=== PATIENT | female | born 1955 | race Caucasian/White ===

== ENCOUNTER 2021-01-10 05:54 | Day surgery (SDC) | payer MEDICAID ==
[~2021-01-10 05:54] MED LIST: Lidocaine 1%/Sod Bicarbonate in NS 8.4% 1 ML Syringe IDERM PRN; Sodium Chloride 0.9% 10 ML Syringe FLUSH PRN
[2021-01-10] MEDS ORDERED: oxyCODONE ER 10 MG TAB.ER PO SCH (06:00)
[2021-01-10] MEDS ORDERED: Acetaminophen 325 MG Tab PO SCH (06:00)
[2021-01-10] MEDS ORDERED: Pregabalin 25 MG Cap PO SCH (06:00)
[2021-01-10] MEDS: Lactated Ringers 1,000 ML IV SCH ×3 (06:10→12:01)
--- NOTE | 2021-01-10 06:36 | PCM.PREANE ---
Preanesthetic Assessment - Procedure Proposed Procedure: Right Total knee arthroplasty - Review of Systems General: No Symptoms Pulmonary: No Symptoms Cardiovascular: No Symptoms Gastrointestinal: No Symptoms Neurological: No Symptoms Other: Reports: Anxiety - Physical Assessment NPO Status Date: 01/09/21 NPO Status Time: 21:00 Vital Signs: 134/63 62 96% 97.5 F Height: 1.63 m Weight: 127 kg ASA Class: 3 Mental Status: Alert & Oriented x3 Airway Class: Mallampati = 3 Dentition: Reports: [place](s), Broken Tooth/Teeth, Caries Thyro-Mental Finger Breadths: 3 Mouth Opening Finger Breadths: 3 ROM/Head Extension: Full Lungs: Clear to Auscultation, Normal Respiratory Effort Cardiovascular: Regular Rate, Regular Rhythm - Lab Values: Laboratory Last Values MRSA (PCR) Negative 12/29/20 14:38 - Allergies Allergies/Adverse Reactions: Allergies Allergy/AdvReac Type Severity Reaction Status Date / Time adhesive tape Allergy Hives Verified 01/07/21 12:44 latex Allergy Rash Verified 01/07/21 12:44 morphine Allergy Nausea and Verified 01/07/21 12:44 Vomiting - Acknowledgements Anesthesia Type Planned: Spinal, Regional Block Pt an Appropriate Candidate for the Planned Anesthesia: Yes Alternatives and Risks of Anesthesia Discussed w Pt/Guardian: Yes Pt/Guardian Understands and Agrees with Anesthesia Plan: Yes PreAnesthesia Questionnaire HEENT History: Reports: Impaired Vision, Other (See Below) Other HEENT History: wears glasses Cardiovascular History: Reports: High Cholesterol, Other (See Below) Other Cardiovascular History: bradycardia, tachy-jimena syndrome Respiratory History: Reports: None Gastrointestinal History: Reports: None Genitourinary History: Reports: None COLORING CHECKER History: Reports: None Musculoskeletal History: Reports: RA, Other (See Below) Other Musculoskeletal History: femur fracture Neurological History: Reports: Other (See Below) Other Neuro History: facial droop Psychiatric History: Reports: Other (See Below) Other Psychiatric History: dysthymic disorder Endocrine/Metabolic History: Reports: Hypothyroidism, Obesity/BMI 30+, Other (See Below) Other Endocrine/Metabolic History: goiter Hematologic History: Reports: None Immunologic History: Reports: None Oncologic (Cancer) History: Reports: None Dermatologic History: Reports: Cellulitis, Other (See Below) Other Dermatologic History: scalp cyst excision - Infectious Disease History Infectious Disease History: Reports: None - Past Surgical History Head Surgeries/Procedures: Reports: None HEENT Surgical History: Reports: Tonsillectomy Cardiovascular Surgical History: Reports: Cardiac Ablation Respiratory Surgical History: Reports: None GI Surgical History: Reports: Cholecystectomy Female Surgical History: Reports: Section, D&C, Hysterectomy, Tubal Ligation Male Surgical History: Reports: None Endocrine Surgical History: Reports: Thyroidectomy Neurological Surgical History: Reports: None Musculoskeletal Surgical History: Reports: Knee Replacement Oncologic Surgical History: Reports: Bone Marrow Transplant Dermatological Surgical History: Reports: None - SUBSTANCE USE Tobacco Use Status *Q: Never Tobacco User Recreational Drug Use History: No - HOME MEDS Home Medications: Home Meds Acetaminophen/HYDROcodone [[place] 325-5 MG] 1 tab PO Q4H PRN 01/07/21 [History] Calcium Carb/Vitamin D3/Vit K1 [Calcium + D Soft Chewable Tab] 1 tab PO DAILY 01/07/21 [History] Cholecalciferol (Vitamin D3) [Vitamin D3] 5,000 unit PO DAILY 01/07/21 [History] Citalopram Hydrobromide [Celexa] 40 mg PO DAILY 01/07/21 [History] Diclofenac Sodium [Voltaren 1% Gel] 1 dose TOP QID 01/07/21 [History] Fish Oil/[place]-3 Fatty Acids [Fish Oil 1,000 MG] 1 gm PO DAILY 01/07/21 [History] Levothyroxine 125 mcg PO DAILY 01/07/21 [History] Methotrexate 20 mg PO FR 01/07/21 [History] Multivitamin 1 tab PO DAILY 01/07/21 [History] Zinc 50 mg PO DAILY 01/07/21 [History] tiZANidine HCl [Zanaflex] 4 mg PO BEDTIME 01/07/21 [History] - CURRENT (IN HOUSE) MEDS Current Meds: Current Medications Acetaminophen (Acetaminophen 325 Mg Tab) 975 mg PO ONETIME RUSH Stop: 01/10/21 18:00 Last Admin: 01/10/21 06:17 Dose: 975 mg Documented by: Epinephrine HCl 0.3 mg/Cefuroxime Sodium 750 mg/Ketorolac Tromethamine 30 mg/Sodium Chloride 7.9 ml 0 mg .XX ASDIRECTED PRN PRN Reason: Pain Stop: 01/10/21 18:00 Lactated Ringer's (Ringers, Lactated) 1,000 mls @ 125 mls/hr IV ASDIRECTED RUSH Stop: 01/10/21 23:00 Lidocaine/Sodium Bicarbonate (Lidocaine 1%/Sod Bicarbonate In Ns 8.4% 1 Ml Syri nge) 0.25 ml IDERM ONETIME PRN PRN Reason: Prior to IV Start Stop: 01/10/21 18:00 Oxycodone HCl (Oxycodone Er 10 Mg Tab.Er) 10 mg PO ONETIME RUSH Stop: 01/10/21 18:00 Last Admin: 01/10/21 06:17 Dose: 10 mg Documented by: Pregabalin (Pregabalin 25 Mg Cap) 50 mg PO ONETIME RUSH Stop: 01/10/21 18:00 Last Admin: 01/10/21 06:17 Dose: 50 mg Documented by: Sodium Chloride (Sodium Chloride 0.9% 10 Ml Syringe) 10 ml FLUSH ASDIRECTED PRN PRN Reason: Keep Vein Open Stop: 01/10/21 18:00 Discontinued Medications Tranexamic Acid (Tranexamic Acid 1,000 Mg/10 Ml Amp) Confirm Administered Dose 1,000 mg .ROUTE .STK-MED ONE Stop: 01/10/21 06:15 Vancomycin HCl (Vancomycin 1 Gm Sdv) Confirm Administered Dose 1 gm .ROUTE .STK- MED ONE Stop: 01/10/21 06:15
[2021-01-10] MEDS ORDERED: fentaNYL 100 MCG/2 ML SDV ONE (06:48)
[2021-01-10] MEDS ORDERED: Propofol 200 MG/20 ML SDV ONE (06:49)
[2021-01-10] MEDS ORDERED: Midazolam 1 MG/ML 2 ML SDV ONE (06:49)
[2021-01-10] MEDS ORDERED: Lidocaine 1% 4 ML ONE (07:25)
[2021-01-10] MEDS ORDERED: ceFAZolin 1 GM Vial ONE (07:27)
[2021-01-10] MEDS ORDERED: Lactated Ringers 1,000 ML ONE (08:03)
[2021-01-10] MEDS: EPINEPHrine 0.3 MG, Cefuroxime 750 MG, Ketorolac 30 MG, Sodium Chloride 0.9% 7.9 ML PRN ×8 (08:08→08:38)
[2021-01-10] MEDS: Vancomycin 1 GM SDV ONE ×2 (08:08→08:47)
[2021-01-10] MEDS ORDERED: Dexamethasone 4 MG/ML 5 ML MDV ONE (08:19)
[2021-01-10] MEDS ORDERED: Dexmedetomidine 200 MCG/2 ML SDV ONE (08:19)
[2021-01-10] MEDS ORDERED: Ropivacaine 0.5% 5 MG/ML 30 ML SDV ONE (09:13)
--- NOTE | 2021-01-10 09:46 | PCM.POSTAN ---
POST ANESTHESIA ASSESSMENT - MENTAL STATUS Mental Status: Alert, Oriented - VITAL SIGNS Vital Signs: Last Vital Signs Temp 97.0 F 01/10/21 09:11 Pulse 62 01/10/21 05:50 Resp 10 L 01/10/21 09:11 BP 84/75 L 01/10/21 09:11 Pulse Ox 98 01/10/21 09:11 - RESPIRATORY Respiratory Status: Respiratory Rate WNL, Airway Patent, O2 Saturation Stable, Supplemental Oxygen - CARDIOVASCULAR CV Status: Pulse Rate WNL, Low Blood Pressure - GASTROINTESTINAL GI Status: No Symptoms - PAIN Pain Score: 0 (post SAB) - POST OP HYDRATION Hydration Status: Adequate & Stable
--- NOTE | 2021-01-10 09:52 | PCM.PRNOTE ---
- Free Text/Narrative Note: Postoperative regional pain control requested by surgeon. Pre-op Dx: Rt knee osteoarthritis. Post-op Rx: Total Rt knee arthroplasty. Procedure: Rt Adductor canal block with U/S guidance Requesting physician: Dr. Edison Borjas Risks and benefits discussed with the patient preoperatively including infection, bleeding, incomplete or failed block, possible nerve damage, local anesthetic toxicity. Permit signed. Patient after spinal anesthesia post surgery in PACU, stable , alert and awake. Time out performed. Right mid-thigh was prepped with Chloraprep x 1 and allowed to dry. Under aseptic technique, the right femoral artery and sartorius muscle were identified under ultrasound prior to needle insertion. 4" Stimuplex needle #20 G was inserted under US guidance. Under direct visualization of needle tip the injection of 0.5% Ropivacaine with 1:200k epinephrine, with added 8 mg of Dexamethasone and 40 mcg of Dexmedetomidine, total of 30 mls in divided doses, maintaining negative aspiration was completed. .Blood return noticed twice and the needle repositioned, flushed with NS until aspiration was negative. An episode of transient heart rate elevation was noted, which resolved within minutes. No additional interventions were necessary. Patient is awake and stable. Time: 09:21 - 09:30 Please see attached U/S picture.
[2021-01-10] MEDS ORDERED: ePHEDrine 50 MG/ML SDV ONE (10:08)
--- NOTE | 2021-01-10 11:16 | CR ---
Right knee: AP and crosstable lateral views of the right knee were obtained. Comparison: Prior right knee CT study of 12/29/20. Knee prosthesis is seen. Components are aligned. Underlying bony structures are intact. Soft tissue air is noted from the surgical procedure. Impression: 1. Satisfactory postop radiographic appearance of recently placed right knee prosthesis. Diagnostic code #2
[2021-01-10] MEDS ORDERED: oxyCODONE 5 MG Tab PO PRN (11:59)
--- NOTE | 2021-01-10 12:30 | PCM48HPAN ---
Post Anesthesia Note - EVALUATION WITHIN 48HRS OF ANESTHETIC Vital Signs in Normal Range: Yes Patient Participated in Evaluation: Yes Respiratory Function Stable: Yes Airway Patent: Yes Cardiovascular Function Stable: Yes Hydration Status Stable: Yes Pain Control Satisfactory: Yes Nausea and Vomiting Control Satisfactory: Yes Mental Status Recovered: Yes Vital Signs: Last Vital Signs Temp 97.0 F 01/10/21 09:11 Pulse 84 01/10/21 11:00 Resp 15 01/10/21 11:00 BP 148/78 H 01/10/21 11:00 Pulse Ox 96 01/10/21 11:00 - COMMENTS/OBSERVATIONS Free Text/Narrative:: Patient is stable, no chest discomfort noted anymore, ambulated with PT, had the lunch, pain under control. Preparing for discharge home.
--- NOTE | 2021-01-10 13:46 | PCM.OPNOTE ---
- General Post-Op/Procedure Note Date of Surgery/Procedure: 01/10/21 Operative Procedure(s): right total knee arthroplasty with [employer] Pre Op Diagnosis: right knee ostearthrosis Post-Op Diagnosis: Same Anesthesia Technique: Local, MAC, Spinal Primary Surgeon: Edison Coello Anesthesia Provider: Akhil Tracey Foreman/[employer]: Jaci Castellanos Foreman/[employer] Erection: Jaqui Palomares EBL in mLs: 300 Complications: None Condition: Good Free Text/Narrative:: Intake & Output 01/09/21 01/10/21 01/10/21 22:59 06:59 14:59 Intake Total 1200 Balance 1200 4 femur 3 tibia 9mm 29x9
--- NOTE | 2021-01-10 14:37 | PCM.EKG ---
#1 Interpretation EKG Date: 01/10/21 Time: 09:33 Rhythm: NSR Rate (Beats/Min): 80 Stanton: LAD-Left Stanton Deviation (Mild mild left axis deviation of -8 degrees) P-Wave: Enlarged QRS: Other (Consider left atrial hypertrophy new Q waves V1 to V3 old anteroseptal myocardial infarction. Q waves present in leads III and aVF consider old inferior wall myocardial infarction.) ST-T: Other (Mildly prolonged T wave flattening aVL 3 and aVF nonspecific) QT: Prolonged EKG Interpretation Comments: Abnormal ECG
--- NOTE | 2021-01-20 09:23 | OR ---
DATE OF OPERATION: 01/10/2021 SURGEON: Edison Coello MD OPERATION PERFORMED: Right total knee arthroplasty, [employer]. PREOPERATIVE DIAGNOSIS: Right knee osteoarthrosis. POSTOPERATIVE DIAGNOSIS: Right knee osteoarthrosis. ANESTHESIA: Local MAC with spinal. ANESTHESIA PROVIDER: Daniela Baker. ASSISTANTS: Jaci Castellanos PA-C and Jaqui Palomares LPN. ESTIMATED BLOOD LOSS: 300 mL. COMPLICATIONS: None. CONDITION: Stable. IMPLANTS: 1. Conesus size 4 press-fit CR femur. 2. Masha size 3 press-fit tibial baseplate. 3. Masha size 9 mm CS polyethylene insert. 4. Masha size 29 x 9 mm press-fit asymmetric patella. DESCRIPTION OF PROCEDURE: The patient was identified in the preoperative holding area. Proper site was marked and identified by the surgeon. The patient was taken back to the operative theater where after adequate anesthesia, the patient's right lower extremity had a nonsterile tourniquet applied and then sterilely prepped and draped in the usual sterile fashion. OR time-out was performed. The patient received 2 g IV Ancef. At this time, right lower extremity had the leg ashford boot applied. It was then exsanguinated. Tourniquet was insufflated to 250 mmHg. Standard anterior incision was made. Medial parapatellar arthrotomy was created. Deep fibers of the MCL were raised, and the anterior fat pad was resected. At this time, attention was turned to the patella. Patella measured a 21, resected to a 13 for 29 x 9 mm patella. Drill holes were then drilled and found to be adequate. Two guide pins were then placed intra-incisionally in the femur for the [employer] robotic array. Checkpoints were placed on the femur and the tibia, and then 2 more pins were placed 3 fingerbreadths below the tibial tubercle for the tibial [employer] robotic array. Hip center rotation was obtained. Medial and lateral malleoli were marked. At this time, 40 points were obtained from both the femur and the tibia for the [employer] robotic plan. The patient's knee was brought into full extension. Varus and valgus stresses were applied and then 90 degrees of flexion and varus and valgus stresses were applied with the use of a Leon. At this time, the [employer] robotic plan was used for this patient to fit her anatomy doing various external rotation to match her anatomy. At this time, the [employer] robotic arm was brought in with a straight saw blade. The tibial cut was made as well as the anterior femoral cut, the anterior chamber, and the posterior femoral cut. Saw blade was then switched and the posterior chamfer as well as distal femoral cut was completed at this time. All bony pieces were removed. Medial and lateral meniscus were resected. Posterior osteophytes were removed. Trial implants were then placed with a size 3 tibia, size 4 femur, 9 mm trial poly was placed. The patient had full extension and full flexion. No liftoff was noted. No varus or valgus instability. At this time, the drill holes were drilled in the femur. The tibia was stamped and drilled in the proper rotation. Size 3 tibia was then impacted into place, size 4 femur was impacted into place, 9 mm CS polyethylene was impacted into place, and the 29 x 9 mm press-fit patella was press-fit into place. The tourniquet was deflated. Bleeders were cauterized. 1 L pulse lavage irrigation with Ancef was irrigated in the knee along with 400 mL IrriSept irrigation. Periarticular injection was completed. Topical tranexamic acid and vancomycin powder were applied. A #2 barbed suture was used for closure of the medial parapatellar arthrotomy, 2-0 Vicryl and Stratafix were used subcutaneously, and Prineo was used for skin closure. The patient tolerated the procedure well and was sent to PACU in stable condition. ZULY /[id number]
== END 2021-01-10 14:08 | disposition home or self-care (01) ==
LOC: JD.SDS 05:54
PROVIDERS: ATTEND Orthopaedic Surgery
DX: M17.11 Unilateral primary osteoarthritis, right knee (principal); R29.810 Facial weakness; R73.03 Prediabetes; E66.01 Morbid (severe) obesity due to excess calories; E03.9 Hypothyroidism, unspecified; I10 Essential (primary) hypertension; M06.9 Rheumatoid arthritis, unspecified; Z98.890 Other specified postprocedural states; Z79.899 Other long term (current) drug therapy; Z88.5 Allergy status to narcotic agent; Z91.040 Latex allergy status; Z91.048 Other nonmedicinal substance allergy status; Z79.890 Hormone replacement therapy; Z68.42 Body mass index [BMI] 45.0-49.9, adult
CPT/HCPCS: 27447; 73560; 87641; 93005; 97110; 97116; 97161; 97165; 97535; A9270; C1713; C1776; J0171; J0690; J0697; J1100; J1885; J2250; J2370; J2704; J2795; J3010; J3370; J7120; 01402; 64450; 76942

== ENCOUNTER 2021-01-12 21:25 | Emergency (ER) | payer MEDICAID ==
[2021-01-12] MEDS ORDERED: HYDROmorphone 0.5 MG/0.5 ML Syringe IVPUSH ONE ×2 (22:19→23:28)
[2021-01-12] MEDS ORDERED: Ondansetron 4 MG/2 ML SDV IVPUSH ONE (22:19)
--- NOTE | 2021-01-12 22:20 | EDM.PDOC ---
ED HPI GENERAL MEDICAL PROBLEM - General Chief Complaint: Fever Stated Complaint: FEVER Time Seen by Provider: 01/12/21 21:58 Source of Information: Reports: Patient History Limitations: Reports: No Limitations - History of Present Illness INITIAL COMMENTS - FREE TEXT/NARRATIVE: Ms. Styles is a very pleasant 65-year-old woman who who underwent a right total knee arthroplasty with robotic assistance 2 days ago, 01/10/2021. She was discharged home the same day. She now presents the ED with a fever that she states developed yesterday afternoon, 01/11/2021. She states that her fever was higher today, with a T-max of 103.7 degrees at 21:00 tonight. No recent cough, dyspnea, nausea, vomiting, or diarrhea, however, the patient states that she has been leaking urine ever since her surgery. She denies dysuria. She reports considerable pain in her right knee, and states that it is hot to the touch. She has been taking prescribed oxycodone and OTC acetami nophen. Here in the ED tonight, the patient's initial BP is found to be mildly elevated at 146/77, otherwise, she is hemodynamically stable, afebrile, saturating 94 to 96% on room air. She appears to be somewhat anxious and uncomfortable, but in no acute distress. Prior to Sunday, the patient denies having a recent fever, chills, sore throat, ear pain, nasal or sinus congestion, cough, dyspnea, chest pain, palpitations, nausea, vomiting, constipation, diarrhea, abdominal pain, urinary symptoms, recent weight gain or weight loss, recent bloody bowel movements or black bowel movements, headaches, or rashes. The patient's PCP is Caroline Bragg NP. Her Orthopedic Surgeon is Dr. Edison Coello. Right Knee Pain Score (Numeric/FACES): 10 - Related Data Allergies Allergy/AdvReac Type Severity Reaction Status Date / Time adhesive tape Allergy Severe Hives Verified 01/12/21 21:45 latex Allergy Severe Rash Verified 01/12/21 21:45 morphine AdvReac Severe Nausea and Verified 01/12/21 21:45 Vomiting Home Meds: Home Meds Calcium Carb/Vitamin D3/Vit K1 [Calcium + D Soft Chewable Tab] 1 tab PO DAILY 01/07/21 [History] Cholecalciferol (Vitamin D3) [Vitamin D3] 5,000 unit PO DAILY 01/07/21 [History] Citalopram Hydrobromide [Celexa] 40 mg PO DAILY 01/07/21 [History] Fish Oil/[place]-3 Fatty Acids [Fish Oil 1,000 MG] 1 gm PO DAILY 01/07/21 [History] Levothyroxine 125 mcg PO DAILY 01/07/21 [History] Multivitamin 1 tab PO DAILY 01/07/21 [History] Zinc 50 mg PO DAILY 01/07/21 [History] tiZANidine HCl [Zanaflex] 4 mg PO BEDTIME 01/07/21 [History] Aspirin [Aspirin EC] 325 mg PO BID #84 tab 01/10/21 [Rx] Rivaroxaban [Xarelto] 10 mg PO DAILY #5 tab 01/10/21 [Rx] oxyCODONE 5 - 10 mg PO Q4H PRN #40 tab 01/10/21 [Rx] valACYclovir HCl [valACYclovir] 1,000 mg PO ASDIRECTED 01/10/21 [History] Acetaminophen [Tylenol Extra Strength] 1,000 mg PO Q4HR PRN 01/12/21 [History] Rosuvastatin [Crestor] 10 mg PO BEDTIME 01/12/21 [History] Past Medical History HEENT History: Reports: Impaired Vision (wears glasses) Cardiovascular History: Reports: Arrhythmia (tachy-jimena syndrome, s/p cardiac ablation), High Cholesterol, Hypertension, Other (See Below) Musculoskeletal History: Reports: Fracture (bilateral femurs), Osteoarthritis, RA Endocrine/Metabolic History: Reports: Hypothyroidism (following thyroidectomy), Obesity/BMI 30+, Other (See Below) (Prediabetes) - Past Surgical History HEENT Surgical History: Reports: Tonsillectomy Cardiovascular Surgical History: Reports: Cardiac Ablation GI Surgical History: Reports: Cholecystectomy (1985) Female Surgical History: Reports: Section (x 2), D&C, Hysterectomy (complete), Tubal Ligation Endocrine Surgical History: Reports: Thyroidectomy (due to goiter) Musculoskeletal Surgical History: Reports: Knee Replacement (bilateral) Social & Family History - Tobacco Use Tobacco Use Status *Q: Never Tobacco User - Caffeine Use Caffeine Use: Reports: Coffee - Alcohol Use Alcohol Use History: No - Recreational Drug Use Recreational Drug Use: No - Living Situation & Occupation Living situation: Reports: , Alone Occupation: Unemployed ED ROS GENERAL - Review of Systems Review Of Systems: Comprehensive ROS is negative, except as noted in HPI. ED EXAM, GENERAL - Physical Exam Exam: See Below Exam Limited By: No Limitations General Appearance: Alert, WD/WN, Anxious Eye Exam: Bilateral Eye: EOMI, Normal Inspection Ears: Normal External Exam, Hearing Grossly Normal Nose: Normal Inspection Throat/Mouth: Normal Inspection, Normal Lips, Normal Voice, No Airway Compromise Head: Atraumatic, Normocephalic Neck: Normal Inspection, Full Range of Motion Respiratory/Chest: No Respiratory Distress, Lungs Clear, Normal Breath Sounds, No Accessory Muscle Use Cardiovascular: Normal Peripheral Pulses, Regular Rate, Rhythm, No Gallop, No JVD, No Murmur, No Rub Peripheral Pulses: 3+: Radial (L), Radial (R) GI/Abdominal: Normal Bowel Sounds, Soft, Non-Tender, No Organomegaly, No Distention, No Abnormal Bruit, No Mass Extremities: Normal Capillary Refill, Other (Right knee and surrounding area swollen and erythematous, with calor. The patient reports tenderness to palpation. Surgical dressings are still on, and appear to be clean and dry.) Neurological: Alert, Oriented, Normal Cognition, No Motor/Sensory Deficits Psychiatric: Anxious Skin Exam: Warm, Dry, Intact, Normal Color, No Rash Course - Vital Signs Last Recorded V/S: Last Vital Signs Temp 36.3 C 01/12/21 21:39 Pulse 92 01/12/21 21:39 Resp 18 01/12/21 21:39 BP 146/77 H 01/12/21 21:39 Pulse Ox 94 L 01/12/21 21:39 - Orders/Labs/Meds Orders: Active Orders 24 hr Category Date Time Status CULTURE BLOOD [BC] Stat Lab 01/12/21 22:30 Received CULTURE BLOOD [BC] Stat Lab 01/12/21 22:40 Received Magnesium Sulfate/Water [Magnesium Sulfate in Water 4 Med 01/12/21 23:29 Active GM/50 ML] 4 gm Premix Bag 1 bag IV ONETIME Sodium Chloride 0.9% [Normal Saline] 1,000 ml Med 01/12/21 22:30 Active IV ASDIRECTED Blood Culture x2 Reflex Set [OM.PC] Stat Oth 01/12/21 22:17 Ordered Medication Orders Sodium Chloride (Normal Saline) 1,000 mls @ 100 mls/hr IV ASDIRECTED RUSH Last Admin: 01/12/21 22:37 Dose: 100 mls/hr Documented by: [email or web address] Magnesium Sulfate 4 gm/ Premix 50 mls @ 12.5 mls/hr IV ONETIME ONE Stop: 01/13/21 03:28 Last Admin: 01/12/21 23:36 Dose: 12.5 mls/hr Documented by: [email or web address] Labs: Laboratory Tests 01/12/21 01/12/21 01/12/21 Range/Units 22:30 22:30 22:55 WBC 12.22 H (3.98-10.04) K/mm3 RBC 4.15 (3.98-5.22) M/mm3 Hgb 13.0 (11.2-15.7) gm/dl Hct 39.6 (34.1-44.9) % MCV 95.4 H (79.4-94.8) fl MCH 31.3 (25.6-32.2) pg MCHC 32.8 (32.2-35.5) g/dl RDW Std Deviation 49.2 H (36.4-46.3) fL Plt Count 283 (182-369) K/mm3 MPV 9.9 (9.4-12.3) fl Neutrophils % (Manual) 77 H (40-60) % Band Neutrophils % 0 (0-10) % Lymphocytes % (Manual) 18 L (20-40) % Atypical Lymphs % 1 % Monocytes % (Manual) 4 (2-10) % Eosinophils % (Manual) 0 L (0.7-5.8) % Basophils % (Manual) 0 L (0.1-1.2) Platelet Estimate Adequate RBC Morph Comment Normal Sodium 140 (136-145) mEq/L Potassium 3.4 L (3.5-5.1) mEq/L Chloride 99 (98-107) mEq/L Carbon Dioxide 30 (21-32) mEq/L Anion Gap 14.4 (5-15) BUN 12 (7-18) mg/dL Creatinine 0.9 (0.55-1.02) mg/dL Est Cr Clr Drug Dosing 59.89 mL/min Estimated GFR (MDRD) > 60 (>60) mL/min BUN/Creatinine Ratio 13.3 L (14-18) Glucose 146 H (80-115) mg/dL Calcium 8.4 L (8.5-10.1) mg/dL Magnesium 1.3 L (1.8-2.4) mg/dl Total Bilirubin 1.0 (0.2-1.0) mg/dL AST 64 H (15-37) U/L ALT 65 H (14-59) U/L Alkaline Phosphatase 89 (46-116) U/L C-Reactive Protein 30.0 H* (<1.0) mg/dL Total Protein 7.8 (6.4-8.2) g/dl Albumin 3.3 L (3.4-5.0) g/dl Globulin 4.5 gm/dL Albumin/Globulin Ratio 0.7 L (1-2) Urine Color Yellow (Yellow) Urine Appearance Clear (Clear) Urine pH 7.0 (5.0-8.0) Ur Specific [place] 1.020 (1.005-1.030) Urine Protein 1+ H (Negative) Urine Glucose (UA) Negative (Negative) Urine Ketones 2+ H (Negative) Urine Occult Blood Trace-lysed H (Negative) Urine Nitrite Negative (Negative) Urine Bilirubin Negative (Negative) Urine Urobilinogen 2.0 H (0.2-1.0) Ur Leukocyte Esterase Negative (Negative) U Hyaline Cast (Auto) 0-5 (0-5) /lpf Urine RBC 0-5 (0-5) /hpf Urine WBC 0-5 (0-5) /hpf Ur Squamous Epith Cells 0-5 (0-5) /hpf Urine Bacteria Rare (FEW) /hpf Urine Mucus Few (FEW) /hpf Influenza Type A RNA (NEGATIVE) Influenza Type B RNA (NEGATIVE) SARS-CoV-2 RNA (JENSEN) (NEGATIVE) 01/12/21 Range/Units 22:55 WBC (3.98-10.04) K/mm3 RBC (3.98-5.22) M/mm3 Hgb (11.2-15.7) gm/dl Hct (34.1-44.9) % MCV (79.4-94.8) fl MCH (25.6-32.2) pg MCHC (32.2-35.5) g/dl RDW Std Deviation (36.4-46.3) fL Plt Count (182-369) K/mm3 MPV (9.4-12.3) fl Neutrophils % (Manual) (40-60) % Band Neutrophils % (0-10) % Lymphocytes % (Manual) (20-40) % Atypical Lymphs % % Monocytes % (Manual) (2-10) % Eosinophils % (Manual) (0.7-5.8) % Basophils % (Manual) (0.1-1.2) Platelet Estimate RBC Morph Comment Sodium (136-145) mEq/L Potassium (3.5-5.1) mEq/L Chloride (98-107) mEq/L Carbon Dioxide (21-32) mEq/L Anion Gap (5-15) BUN (7-18) mg/dL Creatinine (0.55-1.02) mg/dL Est Cr Clr Drug Dosing mL/min Estimated GFR (MDRD) (>60) mL/min BUN/Creatinine Ratio (14-18) Glucose (80-115) mg/dL Calcium (8.5-10.1) mg/dL Magnesium (1.8-2.4) mg/dl Total Bilirubin (0.2-1.0) mg/dL AST (15-37) U/L ALT (14-59) U/L Alkaline Phosphatase (46-116) U/L C-Reactive Protein (<1.0) mg/dL Total Protein (6.4-8.2) g/dl Albumin (3.4-5.0) g/dl Globulin gm/dL Albumin/Globulin Ratio (1-2) Urine Color (Yellow) Urine Appearance (Clear) Urine pH (5.0-8.0) Ur Specific [place] (1.005-1.030) Urine Protein (Negative) Urine Glucose (UA) (Negative) Urine Ketones (Negative) Urine Occult Blood (Negative) Urine Nitrite (Negative) Urine Bilirubin (Negative) Urine Urobilinogen (0.2-1.0) Ur Leukocyte Esterase (Negative) U Hyaline Cast (Auto) (0-5) /lpf Urine RBC (0-5) /hpf Urine WBC (0-5) /hpf Ur Squamous Epith Cells (0-5) /hpf Urine Bacteria (FEW) /hpf Urine Mucus (FEW) /hpf Influenza Type A RNA Negative (NEGATIVE) Influenza Type B RNA Negative (NEGATIVE) SARS-CoV-2 RNA (JENSEN) Negative (NEGATIVE) Meds: Medications Generic Name Dose Route Start Last Admin Trade Name Forrest PRN Reason Stop Dose Admin Sodium Chloride 1,000 mls @ 100 mls/hr 01/12/21 22:30 01/12/21 22:37 Normal Saline IV 100 mls/hr ASDIRECTED RUSH Administration Magnesium Sulfate 4 gm/ Premix 50 mls @ 12.5 mls/hr 01/12/21 23:29 01/12/21 23:36 IV 01/13/21 03:28 12.5 mls/hr ONETIME ONE Administration Discontinued Medications Generic Name Dose Route Start Last Admin Trade Name Sudhirq PRN Reason Stop Dose Admin Hydromorphone HCl 0.5 mg 01/12/21 22:19 01/12/21 22:37 Hydromorphone 0.5 Mg/0.5 Ml Syringe IVPUSH 01/12/21 22:20 0.5 mg ONETIME ONE Administration Hydromorphone HCl 0.5 mg 01/12/21 23:28 01/12/21 23:35 Hydromorphone 0.5 Mg/0.5 Ml Syringe IVPUSH 01/12/21 23:29 0.5 mg ONETIME ONE Administration Hydromorphone HCl 0.5 mg 01/13/21 01:48 01/13/21 01:52 Hydromorphone 0.5 Mg/0.5 Ml Syringe IVPUSH 01/13/21 01:49 0.5 mg ONETIME ONE Administration Ondansetron HCl 4 mg 01/12/21 22:19 01/12/21 22:37 Ondansetron 4 Mg/2 Ml Sdv IVPUSH 01/12/21 22:20 4 mg ONETIME ONE Administration - Re-Assessments/Exams Free Text/Narrative Re-Assessment/Exam: 01/12/21 22:20 As above, the patient underwent a right total knee arthroplasty 2 days ago, then developed a fever yesterday, higher today, with a T-max of 103.7 degrees at 21:00 tonight, although she is afebrile here in the ED. No recent cough, dyspnea, abdominal pain, or diarrhea, but she does report that she has been leaking urine ever since her surgery, therefore UTI is a possibility. I have ordered a work-up that includes several blood tests, 2 sets of blood cultures, a urinalysis by quick catheter, and a swab for the SARS-CoV-2 virus and influenza A + B viruses. In the meantime, the patient will be given some IV Dilaudid for her knee pain, IV Zofran, and IV fluid. 01/12/21 23:30 The patient's CBC is remarkable for mild leukocytosis of 12.22, but with 0% bandemia, and the remainder of her CBC being unremarkable. Her CMP is remarkable for slight hypokalemia of 3.4, and mild hyperglycemia of 146, with the remainder of her CMP being unremarkable. Her magnesium level is depressed at 1.3. Her urinalysis is unremarkable. The patient's CRP and results of her swab for the SARS-CoV-2 virus and influenza A + B viruses is still pending. Based on the above, I have ordered a 4 g Mg-rider. This will take about 4 hours to infuse, during which time we can see if the patient develops a fever. 01/13/21 00:42 The patient's CRP is elevated at 30.0. Her swab for the SARS-CoV-2 virus and influenza A + B viruses has returned negative for all. 01/13/21 03:11 The patient's Mg and is confusing. She has done well, and has not developed a fever. I will discharge her home with the recommendation that she contact Dr. Coello's office later this morning. Departure - Departure Time of Disposition: 03:12 Disposition: Home, Self-Care 01 Condition: Good Clinical Impression: Fever, Hypomagnesemia - Discharge Information *PRESCRIPTION DRUG MONITORING PROGRAM REVIEWED*: Not Applicable *COPY OF PRESCRIPTION DRUG MONITORING REPORT IN PATIENT MARIA FERNANDA: Not Applicable Referrals: Caroline Bragg NP [Primary Care Provider] - Edison Coello MD [Physician] - Forms: ED Department Discharge Additional Instructions: You were seen in the emergency room for evaluation of a fever after undergoing a right total knee arthroplasty on Sunday. Work-up in the ER included several blood tests, 2 sets of blood cultures, a urinalysis, and a swab for the SARS-CoV-2 virus and influenza A + B viruses. Your blood work found your magnesium level to be significantly depressed at 1.3. You were given IV magnesium replacement in the ER. You did not have a fever over the nearly 6 hours that you were seen in the ER. We could not establish that you have an infection, therefore no antibiotics were given. We recommend that you contact Dr. Coello's office later this morning. If any other problems, please do not hesitate to return to the ER. Sepsis Event Note (ED) - Evaluation Sepsis Screening Result: Possible Sepsis Risk - Focused Exam Vital Signs: Vital Signs Temp Pulse Resp BP Pulse Ox 01/12/21 21:39 36.3 C 92 18 146/77 H 94 L - My Orders Last 24 Hours: My Active Orders 01/12/21 22:17 Blood Culture x2 Reflex Set [OM.PC] Stat 01/12/21 22:30 CULTURE BLOOD [BC] Stat Sodium Chloride 0.9% [Normal Saline] 1,000 ml IV ASDIRECTED 01/12/21 22:40 CULTURE BLOOD [BC] Stat 01/12/21 23:29 Magnesium Sulfate/Water [Magnesium Sulfate in Water 4 GM/50 ML] 4 gm Premix Bag 1 bag IV ONETIME - Assessment/Plan Last 24 Hours: My Active Orders 01/12/21 22:17 Blood Culture x2 Reflex Set [OM.PC] Stat 01/12/21 22:30 CULTURE BLOOD [BC] Stat Sodium Chloride 0.9% [Normal Saline] 1,000 ml IV ASDIRECTED 01/12/21 22:40 CULTURE BLOOD [BC] Stat 01/12/21 23:29 Magnesium Sulfate/Water [Magnesium Sulfate in Water 4 GM/50 ML] 4 gm Premix Bag 1 bag IV ONETIME
[2021-01-12] MEDS ORDERED: Sodium Chloride 0.9% 1,000 ML IV SCH (22:30)
[2021-01-12] MEDS ORDERED: Magnesium Sulfate/Water 4 GM in Premix Bag 1 BAG IV ONE (23:29)
[2021-01-12 23:38] LABS: CORONAVIRUS COVID-19 NAA NEGATIVE (NEGATIVE)
[2021-01-13] MEDS ORDERED: HYDROmorphone 0.5 MG/0.5 ML Syringe IVPUSH ONE (01:48)
== END 2021-01-13 03:45 | disposition home or self-care (01) ==
LOC: JD.ED 21:25
DX: R50.9 Fever, unspecified (principal); E83.42 Hypomagnesemia; E78.00 Pure hypercholesterolemia, unspecified; I10 Essential (primary) hypertension; E03.9 Hypothyroidism, unspecified; M06.9 Rheumatoid arthritis, unspecified; E66.9 Obesity, unspecified; Z68.41 Body mass index [BMI] 40.0-44.9, adult; Z20.822 Contact with and (suspected) exposure to COVID-19; Z91.048 Other nonmedicinal substance allergy status; Z91.040 Latex allergy status; Z88.5 Allergy status to narcotic agent; Z79.82 Long term (current) use of aspirin; Z79.01 Long term (current) use of anticoagulants; Z79.899 Other long term (current) drug therapy
CPT/HCPCS: 0240U; 36415; 80053; 81001; 83735; 85007; 85027; 86140; 87040; 96365; 96366; 96375; 96376; 99283; J1170; J2405; J3475; J7030; 99284

== ENCOUNTER 2021-06-28 12:26 | Emergency (ER) | payer MEDICAID ==
[2021-06-28] MEDS ORDERED: Sodium Chloride 0.9% 10 ML Syringe FLUSH PRN (12:52)
[2021-06-28] MEDS ORDERED: Acetaminophen 325 MG Tab PO ONE (12:52)
[2021-06-28] MEDS ORDERED: Ondansetron 4 MG/2 ML SDV IVPUSH ONE (12:52)
[2021-06-28] MEDS ORDERED: Sodium Chloride 0.9% 1,000 ML IV SCH (13:00)
--- NOTE | 2021-06-28 13:19 | CR ---
Chest: Portable view of the chest was obtained. Comparison: No prior study is available. Heart size and mediastinum are within normal limits. Lungs are clear with no acute parenchymal change. No acute osseous abnormality is appreciated. Impression: 1. Nothing acute is seen on portable chest x-ray. Diagnostic code #1
--- NOTE | 2021-06-28 17:13 | EDM.PDOC ---
ED HPI GENERAL MEDICAL PROBLEM - General Chief Complaint: Chest Pain Stated Complaint: CHEST PAIN/SOB Time Seen by Provider: 06/28/21 12:43 Source of Information: Reports: Patient, RN Notes Reviewed - History of Present Illness INITIAL COMMENTS - FREE TEXT/NARRATIVE: 65 yr old female had a near syncopal episode at [facility] a short time ago. Was just walking, pushing cart when she started getting very lightheaded, dizzy. She states she did get diaphoretic, nauseated, almost vomited. She just stood for awhile until it all got better. Feeling better now at time of my exam. Has not been recently ill. Chest still very mildly "heavy feeling". No abd pain, nausea is gone. Chest Pain Score (Numeric/FACES): 8 - Related Data Allergies Allergy/AdvReac Type Severity Reaction Status Date / Time adhesive tape Allergy Severe Hives Verified 06/28/21 12:36 latex Allergy Severe Rash Verified 06/28/21 12:36 morphine AdvReac Severe Nausea and Verified 06/28/21 12:36 Vomiting Home Meds: Home Meds Calcium Carb/Vitamin D3/Vit K1 [Calcium + D Soft Chewable Tab] 1 tab PO DAILY 01/07/21 [History] Cholecalciferol (Vitamin D3) [Vitamin D3] 5,000 unit PO DAILY 01/07/21 [History] Citalopram Hydrobromide [Celexa] 40 mg PO DAILY 01/07/21 [History] Fish Oil/[place]-3 Fatty Acids [Fish Oil 1,000 MG] 1 gm PO DAILY 01/07/21 [History] Levothyroxine 125 mcg PO DAILY 01/07/21 [History] Multivitamin 1 tab PO DAILY 01/07/21 [History] Zinc 50 mg PO DAILY 01/07/21 [History] tiZANidine HCl [Zanaflex] 4 mg PO BEDTIME 01/07/21 [History] Aspirin [Aspirin EC] 325 mg PO BID #84 tab 01/10/21 [Rx] Rivaroxaban [Xarelto] 10 mg PO DAILY #5 tab 01/10/21 [Rx] oxyCODONE 5 - 10 mg PO Q4H PRN #40 tab 01/10/21 [Rx] valACYclovir HCl [valACYclovir] 1,000 mg PO ASDIRECTED 01/10/21 [History] Acetaminophen [Tylenol Extra Strength] 1,000 mg PO Q4HR PRN 01/12/21 [History] Rosuvastatin [Crestor] 10 mg PO BEDTIME 01/12/21 [History] Past Medical History HEENT History: Reports: Impaired Vision Other HEENT History: wears glasses Cardiovascular History: Reports: Arrhythmia, High Cholesterol, Hypertension, Other (See Below) Other Cardiovascular History: bradycardia, tachy-jimena syndrome, SVT Respiratory History: Reports: None Gastrointestinal History: Reports: None Genitourinary History: Reports: None UPPER INSPECTOR History: Reports: None Musculoskeletal History: Reports: Fracture, Osteoarthritis, RA Other Musculoskeletal History: femur fracture Neurological History: Reports: Other (See Below) Other Neuro History: facial droop Psychiatric History: Reports: Other (See Below) Other Psychiatric History: dysthymic disorder Endocrine/Metabolic History: Reports: Hypothyroidism, Obesity/BMI 30+, Other (See Below) Other Endocrine/Metabolic History: goiter Hematologic History: Reports: None Immunologic History: Reports: None Oncologic (Cancer) History: Reports: None Dermatologic History: Reports: Cellulitis, Other (See Below) Other Dermatologic History: scalp cyst excision - Infectious Disease History Infectious Disease History: Reports: None - Past Surgical History HEENT Surgical History: Reports: Tonsillectomy Cardiovascular Surgical History: Reports: Cardiac Ablation GI Surgical History: Reports: Cholecystectomy Female Surgical History: Reports: Section, D&C, Hysterectomy, Tubal Ligation Endocrine Surgical History: Reports: Thyroidectomy Musculoskeletal Surgical History: Reports: Knee Replacement Oncologic Surgical History: Reports: Bone Marrow Transplant Social & Family History - Family History Family Medical History: No Pertinent Family History - Tobacco Use Tobacco Use Status *Q: Never Tobacco User - Caffeine Use Caffeine Use: Reports: Coffee - Recreational Drug Use Recreational Drug Use: No - Living Situation & Occupation Living situation: Reports: , Alone Occupation: Unemployed ED ROS GENERAL - Review of Systems Review Of Systems: See Below Constitutional: Reports: Diaphoresis. Denies: Fever, Chills HEENT: Reports: No Symptoms Respiratory: Denies: Shortness of Breath, Pleuritic Chest Pain, Cough Cardiovascular: Reports: Chest Pain GI/Abdominal: Reports: Nausea. Denies: Abdominal Pain, Diarrhea, Vomiting Musculoskeletal: Denies: Shoulder Pain, Arm Pain, Back Pain Skin: Denies: Rash Neurological: Reports: Dizziness (gone). Denies: Trouble Speaking, Difficulty Walking ED EXAM, GENERAL - Physical Exam Exam: See Below General Appearance: Alert, No Apparent Distress Head: Atraumatic Neck: Supple Respiratory/Chest: No Respiratory Distress, Lungs Clear, Normal Breath Sounds Cardiovascular: Tachycardia GI/Abdominal: Soft, Non-Tender. No: Guarding Extremities: Normal Inspection. No: Pedal Edema, Leg Pain, Increased Warmth, Redness Neurological: Alert, Oriented, No Motor/Sensory Deficits Skin Exam: Warm, Dry, Normal Color #1 Interpretation Rhythm: NSR [employer]: Normal P-Wave: Present QRS: Normal ST-T: Normal Course - Vital Signs Last Recorded V/S: Last Vital Signs Temp 97.0 F 06/28/21 17:30 Pulse 94 06/28/21 17:30 Resp 18 06/28/21 17:30 BP 146/84 H 06/28/21 17:30 Pulse Ox 94 L 06/28/21 17:30 - Orders/Labs/Meds Orders: Active Orders 24 hr Category Date Time Status Peripheral IV Insertion Adult [OM.PC] Stat Oth 06/28/21 12:52 Ordered Labs: Laboratory Tests 06/28/21 06/28/21 06/28/21 Range/Units 12:32 12:32 15:18 WBC 10.65 H (3.98-10.04) K/mm3 RBC 5.02 (3.98-5.22) M/mm3 Hgb 15.7 D (11.2-15.7) gm/dl Hct 47.9 H (34.1-44.9) % MCV 95.4 H (79.4-94.8) fl MCH 31.3 (25.6-32.2) pg MCHC 32.8 (32.2-35.5) g/dl RDW Std Deviation 49.3 H (36.4-46.3) fL Plt Count 314 (182-369) K/mm3 MPV 9.8 (9.4-12.3) fl Neut % (Auto) 69.0 (34.0-71.1) % Lymph % (Auto) 22.0 (19.3-51.7) % [place] % (Auto) 6.9 (4.7-12.5) % Eos % (Auto) 1.6 (0.7-5.8) Baso % (Auto) 0.2 (0.1-1.2) % Neut # (Auto) 7.35 H (1.56-6.13) K/mm3 Lymph # (Auto) 2.34 (1.18-3.74) K/mm3 [place] # (Auto) 0.74 H (0.24-0.36) K/mm3 Eos # (Auto) 0.17 (0.04-0.36) K/mm3 Baso # (Auto) 0.02 (0.01-0.08) K/mm3 Sodium 143 (136-145) mEq/L Potassium 3.9 (3.5-5.1) mEq/L Chloride 104 (98-107) mEq/L Carbon Dioxide 29 (21-32) mEq/L Anion Gap 13.9 (5-15) BUN 17 (7-18) mg/dL Creatinine 0.9 (0.55-1.02) mg/dL Est Cr Clr Drug Dosing 57.57 mL/min Estimated GFR (MDRD) > 60 (>60) mL/min BUN/Creatinine Ratio 18.9 H (14-18) Glucose 123 H (70-99) mg/dL Calcium 8.7 (8.5-10.1) mg/dL Total Bilirubin 0.4 (0.2-1.0) mg/dL AST 24 (15-37) U/L ALT 40 (14-59) U/L Alkaline Phosphatase 90 (46-116) U/L Troponin I < 0.017 < 0.017 (0.00-0.056) ng/mL Total Protein 7.6 (6.4-8.2) g/dl Albumin 3.4 (3.4-5.0) g/dl Globulin 4.2 gm/dL Albumin/Globulin Ratio 0.8 L (1-2) Meds: Medications Discontinued Medications Generic Name Dose Route Start Last Admin Trade Name Freq PRN Reason Stop Dose Admin Acetaminophen 975 mg 06/28/21 12:52 06/28/21 13:06 Acetaminophen 325 Mg Tab PO 06/28/21 12:53 975 mg NOW ONE Administration Sodium Chloride 1,000 mls @ 999 mls/hr 06/28/21 13:00 06/28/21 13:04 Normal Saline IV 999 mls/hr ONETIME RUSH Administration Ondansetron HCl 4 mg 06/28/21 12:52 06/28/21 13:02 Ondansetron 4 Mg/2 Ml Sdv IVPUSH 06/28/21 12:53 4 mg ONETIME ONE Administration Sodium Chloride 10 ml 06/28/21 12:52 06/28/21 13:04 Sodium Chloride 0.9% 10 Ml Syringe FLUSH 10 ml ASDIRECTED PRN Administration Keep Vein Open - Re-Assessments/Exams Free Text/Narrative Re-Assessment/Exam: 06/29/21 10:53 Initial trop normal, did a repeat 2 1/2 hr trop also normal. Other labs OK. CXR nl. Sinus rythm, no ectopy. Discharge instr. as documented. Departure - Departure Time of Disposition: 17:09 Disposition: Home, Self-Care 01 Condition: Fair Clinical Impression: Atypical chest pain, Near syncope Instructions: Near-Syncope, [id number], Chest Wall Pain Referrals: Caroline Bragg [facility] [Primary Care Provider] - Forms: ED Department Discharge Additional Instructions: Rest, Drink plenty of water to maintain hydration. If you do get dizzy or lightheaded again be sure to lie down or get your head down to a lower position as discussed. See Marisa Carlisle next week at the clinic for recheck, call for appt. Return to ED as needed if symptoms worsening in any way. Sepsis Event Note (ED) - Evaluation Sepsis Screening Result: No Definite Risk - My Orders Last 24 Hours: My Active Orders 06/28/21 12:52 Peripheral IV Insertion Adult [OM.PC] Stat - Assessment/Plan Last 24 Hours: My Active Orders 06/28/21 12:52 Peripheral IV Insertion Adult [OM.PC] Stat
== END 2021-06-28 17:35 | disposition home or self-care (01) ==
LOC: JD.ED 12:26
DX: R07.89 Other chest pain (principal); R55 Syncope and collapse; I10 Essential (primary) hypertension; E78.00 Pure hypercholesterolemia, unspecified; E03.9 Hypothyroidism, unspecified; E66.9 Obesity, unspecified; Z88.5 Allergy status to narcotic agent; Z79.82 Long term (current) use of aspirin; Z79.899 Other long term (current) drug therapy; Z91.040 Latex allergy status
CPT/HCPCS: 36415; 71045; 80053; 84484; 85025; 93005; 96374; 99285; A9270; J2405; J7030

== ENCOUNTER 2022-03-15 06:11 | Day surgery (SDC) | payer MEDICAID ==
[~2022-03-15 06:11] MED LIST changes: +Lactated Ringers 1,000 ML IV SCH; +Midazolam 1 MG/ML 2 ML SDV ONE; +Ondansetron 4 MG/2 ML SDV ONE; +Propofol 200 MG/20 ML SDV ONE; +Sodium Chloride 0.9% 10 ML Syringe FLUSH SCH; +ceFAZolin 1 GM Vial ONE; +fentaNYL 100 MCG/2 ML SDV ONE
[2022-03-15] MEDS ORDERED: Bupivacaine 0.25% 10 ML SDV ONE (06:13)
[2022-03-15] MEDS ORDERED: Lidocaine 1% 30 ML SDV ONE (06:14)
[2022-03-15] MEDS ORDERED: Ondansetron 4 MG/2 ML SDV IVPUSH PRN (06:59)
[2022-03-15] MEDS ORDERED: HYDROmorphone 0.5 MG/0.5 ML Syringe IVPUSH PRN (06:59)
[2022-03-15] MEDS ORDERED: fentaNYL 100 MCG/2 ML SDV IVPUSH PRN (06:59)
[2022-03-15] MEDS ORDERED: Phenylephrine 1% 10 MG/ML SDV IVPUSH PRN (06:59)
== END 2022-03-15 08:04 | disposition home or self-care (01) ==
LOC: JD.SDS 06:11
PROVIDERS: ATTEND Orthopaedic Surgery
DX: M65.341 Trigger finger, right ring finger (principal); M65.331 Trigger finger, right middle finger; E03.9 Hypothyroidism, unspecified; I10 Essential (primary) hypertension; J30.9 Allergic rhinitis, unspecified; M06.9 Rheumatoid arthritis, unspecified; R73.03 Prediabetes; B35.3 Tinea pedis; H54.7 Unspecified visual loss; E78.00 Pure hypercholesterolemia, unspecified; F41.9 Anxiety disorder, unspecified; K21.9 Gastro-esophageal reflux disease without esophagitis; E66.01 Morbid (severe) obesity due to excess calories; Z91.040 Latex allergy status; Z88.5 Allergy status to narcotic agent; Z79.890 Hormone replacement therapy; Z79.899 Other long term (current) drug therapy
CPT/HCPCS: 26055; J0690; J2250; J2405; J2704; J3010; J3490; J7120; 01810

== ENCOUNTER 2024-05-27 14:12 | Emergency (ER) | payer MEDICARE, OTHER ==
[2024-05-27] MEDS: Sodium Chloride 0.9% 10 ML Syringe FLUSH PRN (15:06)
[2024-05-27] MEDS: Ondansetron 4 MG/2 ML SDV IVPUSH ONE (15:06)
[2024-05-27 15:17] LABS: BASOPHILS PERCENT AUTO 0.4 % (0.0-1.0); EOSINOPHILS ABSOLUTE AUTO 0.1 K/mm3 (0.0-0.4); EOSINOPHILS PERCENT AUTO 1.6 % (0.0-6.0); HEMATOCRIT 39.7 % (37.0-47.0); HEMOGLOBIN 13.5 gm/dl (12.0-16.0); IMMATURE GRAN ABSOLUTE AUTO 0.02 K/mm3 (0.00-0.05); IMMATURE GRAN PERCENT AUTO 0.3 % (0.0-0.4); LYMPHOCYTES ABSOLUTE AUTO 1.8 K/mm3 (1.0-4.8); LYMPHOCYTES PERCENT AUTO 26.1 % (24.0-44.0); MEAN CORPUSCULAR HEMOGLOBIN 32.3 pg (28.0-32.0); MEAN PLATELET VOLUME 9.5 fl (9.4-12.3); MONOCYTES ABSOLUTE AUTO 0.4 K/mm3 (0.0-0.8); NEUTROPHILS ABSOLUTE AUTO 4.6 K/mm3 (1.8-7.7); NEUTROPHILS PERCENT AUTO 65.6 % (41.0-71.0); NRBC ABSOLUTE 0.02 (0.00-0.02); NRBC PERCENT 0.3 % (0.0-0.2); PLATELET COUNT,PLT 231 K/mm3 (150-400); RED BLOOD CELL COUNT 4.18 M/mm3 (4.10-5.30); WHITE BLOOD CELL COUNT,WBC 7.02 K/mm3 (3.9-11.3)
[2024-05-27 15:35] LABS: CORONAVIRUS COVID-19 NAA NEGATIVE (NEGATIVE); INFLUENZA A NAA NEGATIVE (NEGATIVE); RESPIRATORY SYNCYTIAL VIR NAA NEGATIVE (NEGATIVE)
[2024-05-27 15:42] LABS: ALBUMIN 3.6 g/dl (3.4-5.0); ANION GAP 13.5 (5-15); BILIRUBIN TOTAL 0.9 mg/dL (0.2-1.0); BUN/CREATININE RATIO 11.8 (14-18); C-REACTIVE PROTEIN 0.86 mg/dL (<0.30); CALCIUM 8.2 mg/dL (8.5-10.1); CREATININE 1.1 mg/dL (0.55-1.02); EST CRCL DRUG DOSING (CG) 45.27 mL/min; POTASSIUM,K 3.5 mEq/L (3.5-5.1); PROTEIN TOTAL,TP 7.1 g/dl (6.4-8.2)
== END 2024-05-27 17:35 | disposition home or self-care (01) ==
LOC: JD.ED 14:12
DX: A08.4 Viral intestinal infection, unspecified (principal); I10 Essential (primary) hypertension; E78.00 Pure hypercholesterolemia, unspecified; E03.9 Hypothyroidism, unspecified; E66.9 Obesity, unspecified; Z90.710 Acquired absence of both cervix and uterus; Z79.899 Other long term (current) drug therapy; Z79.82 Long term (current) use of aspirin; Z91.048 Other nonmedicinal substance allergy status; Z91.040 Latex allergy status; Z88.5 Allergy status to narcotic agent; Z68.42 Body mass index [BMI] 45.0-49.9, adult
CPT/HCPCS: 0241U; 36415; 71045; 80053; 84484; 85025; 86140; 93005; 96374; 99284; J2405; J3490; 93010

== ENCOUNTER 2024-12-12 10:28 | Emergency (ER) | payer MEDICARE, OTHER ==
[2024-12-12] MEDS ORDERED: Sodium Chloride 0.9% 10 ML Syringe FLUSH PRN (10:40)
[2024-12-12] MEDS ORDERED: Iopamidol 755 Mg/ML 100 ML Bottle IVPUSH ONE (10:40)
[2024-12-12] MEDS ORDERED: Sodium Chloride 0.9% 100 ML IV SCH (10:45)
== END 2024-12-12 14:15 | disposition home or self-care (01) ==
LOC: JD.ED 10:28
DX: G45.9 Transient cerebral ischemic attack, unspecified (principal); I10 Essential (primary) hypertension; E78.00 Pure hypercholesterolemia, unspecified; M19.90 Unspecified osteoarthritis, unspecified site; E03.9 Hypothyroidism, unspecified; E66.9 Obesity, unspecified; Z68.38 Body mass index [BMI] 38.0-38.9, adult; Z90.49 Acquired absence of other specified parts of digestive tract; Z90.710 Acquired absence of both cervix and uterus; Z88.5 Allergy status to narcotic agent; Z91.040 Latex allergy status; Z91.048 Other nonmedicinal substance allergy status; Z79.51 Long term (current) use of inhaled steroids; Z79.82 Long term (current) use of aspirin; Z79.890 Hormone replacement therapy; Z79.899 Other long term (current) drug therapy
CPT/HCPCS: 70450; 70450-26; 82947; 93005; 99285